=== PATIENT | male | born 2005 | race Caucasian/White ===

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

== ENCOUNTER 2023-02-28 09:02 | Emergency (ER) | payer BC, MEDICAID, SELFPAY ==
--- NOTE | ~2023-02-28 | XR_ITS ---
EXAMINATION: XR HAND, RIGHT CLINICAL INFORMATION: Pain in fifth finger after fall COMPARISON: None available. TECHNIQUE: PA, lateral, and oblique views of the right hand. FINDINGS: The bones and soft tissues are normal. No fracture. Alignment is anatomic. Joint spaces are maintained. No erosions or soft tissue calcifications. XR/XR hand RT 2V IMPRESSION: Normal right hand.
--- NOTE | ~2023-02-28 | XR_ITS ---
EXAMINATION: XR WRIST, RIGHT CLINICAL INFORMATION: Right wrist pain status post fall. COMPARISON: None available. TECHNIQUE: PA, lateral, and oblique views of the right wrist. An indicator arrow points to the distal right ulna. FINDINGS: The bones and soft tissues are normal. No fracture. Alignment is anatomic with normal joint spaces. No erosions or abnormal soft tissue calcifications. XR/XR wrist RT min 3V IMPRESSION: Unremarkable right wrist.
[2023-02-28 09:05] VITALS: BP 157/95; PULSE 87; RESP 17; TEMP 36.6; O2SAT 97; BMI 36.1
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
== END 2023-02-28 11:48 | disposition home or self-care (01) ==
PROVIDERS: Emergency Provider Emergency Medicine Emergency Medical Services
DX: S63.501A Unspecified sprain of right wrist, initial encounter (principal); W01.0XXA Fall on same level from slipping, tripping and stumbling without subsequent striking against object, initial encounter; Y93.9 Activity, unspecified; Y92.9 Unspecified place or not applicable; Y99.9 Unspecified external cause status
CPT/HCPCS: 73110; 73120; 99283; 99284

== ENCOUNTER 2023-05-24 20:30 | Emergency (ER) | payer BC, MEDICAID, SELFPAY ==
[2023-05-24 20:59] VITALS: BP 186/124; PULSE 73; RESP 18; TEMP 36.2; O2SAT 95; BMI 39.8
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
== END 2023-05-24 22:42 | disposition home or self-care (01) ==
PROVIDERS: Emergency Provider Student in an Organized Health Care Education/Training Program
DX: T23.101A Burn of first degree of right hand, unspecified site, initial encounter (principal); X58.XXXA Exposure to other specified factors, initial encounter
CPT/HCPCS: 99282

== ENCOUNTER 2023-07-30 09:48 | Emergency (ER) | payer BC, SELFPAY ==
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
--- NOTE | ~2023-07-30 | XR_ITS ---
EXAMINATION: XR CHEST CLINICAL INFORMATION: Cough COMPARISON: 12/03/2022 CT scan TECHNIQUE: 2 views of the chest were obtained. FINDINGS: No significant abnormality is noted involving the heart, lungs, mediastinum, bony thorax or soft tissues. XR/XR chest 2V IMPRESSION: Unremarkable examination.
[2023-07-30 10:09] VITALS: BP 167/95; PULSE 82; RESP 18; TEMP 37; O2SAT 97; BMI 40.2
--- NOTE | 2023-07-30 10:35 | ED_ITS ---
HPI - Asthma General Chief Complaint: Asthma Stated Complaint: Chest Pain X 1 Day Diff Breathing Time Seen by Provider: 07/30/23 10:34 Source: patient Mode of arrival: ambulatory Limitations: no limitations History of Present Illness HPI Narrative: Patient is a 18 year old assigned male at with a history of childhood asthma and vaping presenting to the emergency department today with increased SOB. Patient states that he has been having this issue over the last month, was seen at [facility], given an inhaler and felt like he was improving - then he ran out of the inhaler. Patient states that yesterday he went to an urgent care where they gave him Doxycycline to cover for walking pneumonia but he feels as though he is still having trouble. Patient denies any dizziness, lightheadedness, abdominal pain, nausea, vomiting, fever, chills, blurry vision, double vision, loss of vision, chest pain, back pain, night sweats, pain with urination, increased urinary frequency, increased urinary urgency, blood in his urine or stool, syncope or a near syncopal episode, recent trauma or falls, bowel incontinence, bladder incontinence, bowel retention, bladder retention, or any other complaints at this time. MD complaint: shortness of breath Onset (ago): month(s) (1) Severity: mild Associated symptoms: none Related Data Previous Rx's Medication Instructions Recorded albuterol sulfate 90 mcg/actuation 1 inh inhalation QID #8.5 grams 07/30/23 aerosol inhaler prednisone 20 mg tablet 20 mg PO DAILY 7 days #7 tabs 07/30/23 Allergies Allergy/AdvReac Type Severity Reaction Status Date / Time No Known Allergies Allergy Verified 02/28/23 09:04 Review of Systems Constitutional: Constitutional: Reports no additional constitutional complaints, Denies chills, Denies fever(s) and Denies night sweats Eyes: Eyes: Reports no additional eye complaints, Denies blurry vision, Denies change in vision, Denies diplopia, Denies eye discharge, Denies loss of vision and Denies eye pain ENT: Denies dizziness Cardiovascular: Cardiovascular: Reports no additional cardiovascular complaints, Denies chest pain, Denies lightheadedness, Denies Loss of Consciousness and Reports dyspnea Respiratory: Respiratory: Reports no additional respiratory complaints and Reports dyspnea Gastrointestinal: Gastrointestinal: Reports no additional gastrointestinal complaints, Denies abdominal pain, Denies melena, Denies hematochezia, Denies change in bowel habits and Denies change in stool character Genitourinary: Genitourinary: Reports no additional male genitourinary complaints, Denies hematuria, Denies oliguria, Denies difficulty urinating, Denies dysuria, Denies urinary frequency, Denies urinary hesitancy, Denies urinary incontinence and Denies urinary urgency Musculoskeletal: Musculoskeletal: Reports no additional musculoskeletal complaints, Denies numbness and Denies tingling Neurologic: Denies dizziness, Denies loss of vision, Denies numbness and Denies tingling Psychiatric: Psychiatric: Reports no additional psychiatric complaints Endocrine: Endocrine: Reports no additional endocrine complaints Hematologic/Lymphatic: Hematologic/Lymphatic: Reports no additional hemato logic/lymphatic complaints Allergic/Immunologic: Allergic/Immunologic: Reports no additional allergic/immunologic complaints [facility] Past Medical History Attestation statement: The following information was validated with the patient. Source: old records reviewed and nursing notes reviewed Onset Date is defined in the Problem List Problems that require an onset date and time if occurred within 24 hrs of arrival to the ED Aortic Dissection and Rupture; Neurologic impairment; Cardiopulmonary Arrest; Endotracheal Intubation; Insertion or Replacement of Mechanical Circulatory Assist Device Medical History HTN (hypertension) Social History Social History Patient Tobacco Use Status: Never used Tobacco Advance Directives: No Physical Exam Vital Signs: Vital Signs: Last Vital Signs Temp 98.6 F 07/30/23 10:09 Pulse 74 07/30/23 11:01 Resp 16 07/30/23 11:01 BP 167/95 H 07/30/23 10:09 Pulse Ox 97 07/30/23 10:09 O2 Del Method Room Air 07/30/23 10:09 BMI result Body Mass Index 40.2 Const: General: cooperative, no acute distress, alert and awake Nutritional Appearance: well nourished Orientation/consciousness: patient oriented x3 Limitations: no limitations HEENT: Head: Yes normal to inspection and Yes atraumatic Ears: hearing grossly normal bilaterally and external ears normal General nose exam: Normal external nose present, no nasal discharge noted and no epistaxis Face and sinus: Yes normal facial exam, No abrasion and No laceration Mouth: Normal oral and palatal mucosa present, no drooling and no muffled voice Eyes: General: appearance normal, both eyes and all related structures Periorbital: periorbital findings normal Eyelids: Yes eyelids normal Conjunctivae: conjunctivae normal Pupils: Equal, round and reactive pupils present EOM: EOMs intact bilaterally Neck: Neck: Yes normal visual inspection, Yes full ROM and Yes no lymphadeno ozzy Chest: Chest palpation & inspection: normal inspection of the chest Resp: Effort & Inspection: normal respiratory effort and able to speak in complete sentences Auscultation: clear to auscultation bilaterally GI: Inspection: Yes normal to inspection Neuro: General: patient oriented x3 and moves all extremities Cranial nerves: Yes Equal, round and reactive pupils present Cognition (Neuro): normal cognition Motor exam (neuro): 5/5 motor strength present throughout Sensory Exam: Normal double simultaneous stimulation for sensation Coordination: [id number] test normal Extrem: General: Yes normal to inspection, Yes full ROM and Yes capillary refill normal Psych: Appearance: grossly normal Mental Status: mental status grossly normal Affect: normal affect Attitude: cooperative Thought process: Normal thought process present Thought content: Normal thought content present Insight: Good insight present (Psych) Medications Administered Discontinued Medications Generic Name Dose Route Start Last Admin Trade Name Freq PRN Reason Stop Dose Admin Albuterol Sulfate 2.5 mg 07/30/23 10:54 07/30/23 10:57 Albuterol Sulfate (0.083%) 2.5 Mg/3 Ml Vial.Neb INHALE 07/30/23 10:55 Not Given ONCE ONE Albuterol/Ipratropium 3 ml 07/30/23 10:57 07/30/23 11:00 Albuterol/Iprat 2.5/0.5mg 3 Ml Ampul.Neb INHALE 07/30/23 10:58 3 ml ONCE ONE Administration Methylprednisolone Sodium Succinate 60 mg 07/30/23 10:51 07/30/23 11:15 Methylprednisolone Sod Succ 125 Mg/2 Ml Vial IM 07/30/23 10:52 60 mg ONCE ONE Administration Medical Decision Making Medical Decision Making [facility] Narrative: Patient is a 18 year old assigned male at with a history of vaping and childhood asthma presenting to the emergency department today with intermittent shortness of breath. Patient's physical exam was unremarkable. Patient's EKG was unremarkable. Patient's chest x-ray showed no acute process. I explained my physical exam findings as well as all test results to the patient. I answered all questions asked by the patient. Patient received IM solu-medrol and a breathing treatment which he stated helped his symptoms significantly. I stressed the importance of the patient taking his medication as prescribed. I stressed the importance of the patient following up with his primary care provider. I stressed the importance of the patient returning to the emergency department immediately if his symptoms were to worsen or if he were to develop any dizziness, shortness of breath, difficulty breathing, chest pain, blurry vision, loss of vision, nausea, vomiting, abdominal pain, fever, chills, back pain, or any other complaints. Patient verbalized agreement and understanding with this treatment plan and discharge. Differential Diagnosis Differential Diagnoses: The differential diagnosis associated with the presentation includes Asthma exacerbation PNA Cough URI Admission/Observation Consideration of admission/observation: Escalation of care including admission/observation considered Patient would have been admitted to the hospital had his work up had any findings where hospital admission was appropriate and his clinical presentation warranted hospital admission. Independent Interpretation I performed an independent interpretation of an: EKG and Plain X-Ray Interpretation: My interpretation is in agreement with the radiologist's impression of this imaging study. EXAMINATION: XR CHEST CLINICAL INFORMATION: Cough COMPARISON: 12/03/2022 CT scan TECHNIQUE: 2 views of the chest were obtained. FINDINGS: No significant abnormality is noted involving the heart, lungs, mediastinum, bony thorax or soft tissues. XR/XR chest 2V IMPRESSION: Unremarkable examination. Dictated By: Alexandre Aldana MD Signed By: Electronically signed by Alexandre Aldana MD 07/30/23 1127 Vent. Rate: 086 BPM Atrial Rate: 086 BPM P-R Int: 164 ms QRS Dur: 088 ms QT Int: 370 ms P-R-T Axes: 011 008 013 degrees QTc Int: 442 ms Normal sinus rhythm with sinus arrhythmia Normal ECG No previous ECGs available Electronically Signed By:STAR ROBLES Dictated By: Star Robles MD Signed By: Electronically signed by Star Robles MD 07/30/23 1118 Radiology Impression Discussion of test interpretation with radiology: I have reviewed the radiologist's reading. Discharge Plan Discharge Clinical Impression: Asthma with acute exacerbation Patient Disposition: Home, Self-Care Instructions: Asthma (DC) Additional Instructions: Follow up with your primary care provider. Return to the emergency department immediately if your symptoms worsen or if you develop any dizziness, shortness of breath, difficulty breathing, chest pain, blurry vision, loss of vision, nausea, vomiting, abdominal pain, fever, chills, back pain, or any other complaints. Prescriptions: New prednisone 20 mg tablet 20 mg PO DAILY 7 Days Qty: 7 0RF albuterol sulfate 90 mcg/actuation HFA aerosol inhaler 1 inh inhalation QID Qty: 8.5 0RF Referrals: [facility] [place] Family Medicine [Provider Group] (Call to establish and follow up with a primary care provider. If you already have a primary care provider, please follow up with them.) [facility] [place] [facility] [Provider Group] (Call to establish and follow up with a primary care provider. If you already have a primary care provider, please follow up with them.) [facility] [place] [facility] [Provider Group] (Call to establish and follow up with a primary care provider. If you already have a primary care provider, please follow up with them.) Stand Alone Forms: Work/School Release Print Language: Tuvaluan
--- OUTSIDE RECORDS SUMMARY | 2023-07-30 10:44 | XMS_ITS | Continuity of Care Document ---
Author Name Unknown Organization [facility] ter Address [address] [place] [id number] Care Team Providers Care Retail Zone Specialist Name Role Phone Not on Staff, PCP Primary Care Physician Unavail able Encounter [facility] [place] Date(s): 07/11/23 - 07/11/[address] [id number]- Encounter Diagnosis Viral syndrome(Final) - 07/11/23 Discharge Disposition: A-D/C Home Attending Physician: Holden Granados MD Admitting Physician: Holden Granados MD Referring Physician: Not on Staff, Referring MD Allergies, Adverse Reactions, Alerts No Known Allergies Medications Benadryl 25 mg oral capsule 1 capsule = 25 mg, By Mouth, 3 times a day, PRN for itching, # 30 capsule, 0 Refills, Maintenance, 03/07/19 14:19:25 EDT, Capsule Start Date: 03/07/19 Status: Ordered Vital Signs Most recent to oldest [Reference Range]: 1 Weight 143.4 kg (07/11/23 8:32 AM) Oxygen Saturation [94-100 %] 99 % (07/11/23 8:32 AM) Pulse Rate [55-90 bpm] 88 bpm (07/11/23 8:32 AM) Blood Pressure [90-138/55-84 mm Hg] 161/ 114mm Hg *H* (07/11/23 8:32 AM) Respiratory Rate [16-30 br/min] 16 br/mi n (07/11/23 8:32 AM) Temperature [96.8-100.4 DegF] 97.5 DegF (07/11/23 8:32 AM) Mode of Delivery (Oxygen) Room air (07/11/23 8:32 AM) Blood pressure sites Arm, left (07/11/23 8:32 AM) Temperature Route Oral (07/11/23 8:32 AM) Dry Weight 143.4 kg (07/11/23 8:32 AM) Weight Obtained Via Standing scale (07/11/23 8:32 AM) Dry Weight Obtained Via Standing scale (07/11/23 8:32 AM) Social History Social History Type Response Sex Male Patient Care team information Care Team Personnel Name: Not on Staff, PCP Position: [facility] Physician (General Medicine) Member Role: PCP Name: Roberta GREENE, Holden Position: [facility] ED Medicine MD Member Role: Admitting Physician Address: Address: [address] [place] [address] Name: Alex GREENE, Anuja Licea Position: [facility] Resident Member Role: ED Resident Address: Address: [address] [place] [address] Name: Laura Chandler RN Position: [facility] ED RN W/OE and Tasks Member Role: Patient Care Provider Care Team Related Persons Name: DEION CARDONA Address: home [address] [place] [id number] Name: LESLIE CARDONA Address: home [address] [place] [id number]
[2023-07-30] MEDS: Albuterol/Iprat 2.5/0.5MG 3 ML AMPUL.NEB INHALE (11:00)
[2023-07-30 11:01] VITALS: PULSE 74; RESP 16; O2SAT 98
[2023-07-30] MEDS: methylPREDNISolone Sod Succ 125 MG/2 ML VIAL 60 MG IM (11:15)
== END 2023-07-30 11:44 | disposition home or self-care (01) ==
PROVIDERS: Emergency Provider Emergency Medicine
DX: J45.901 Unspecified asthma with (acute) exacerbation (principal); R06.02 Shortness of breath; I10 Essential (primary) hypertension
CPT/HCPCS: 71046; 93005; 94640; 96372; 99284; J2930

== ENCOUNTER → 2023-07-30 10:00 | Outpatient (BNV) | payer BC, MEDICAID, SELFPAY | PROVIDERS: Emergency Provider Emergency Medicine; Visit Provider Internal Medicine | DX: R07.9 Chest pain, unspecified (principal) | CPT/HCPCS: 93010 ==

== ENCOUNTER 2023-08-22 10:44 | Emergency (ER) | payer BC, SELFPAY ==
--- NOTE | ~2023-08-22 | XR_ITS ---
EXAMINATION: XR CHEST CLINICAL INFORMATION: Hemoptysis COMPARISON: 07/30/2023 TECHNIQUE: Frontal view of the chest was obtained. FINDINGS: No significant abnormality is noted involving the heart, lungs, mediastinum, bony thorax or soft tissues. XR/XR chest 1V IMPRESSION: No interval change and no active cardiopulmonary disease
[2023-08-22 10:46] VITALS: BP 184/107; PULSE 90; RESP 18; TEMP 36; O2SAT 98; BMI 34.1
[2023-08-22 10:59] LABS: MANUAL DIFF FLAG NO
[2023-08-22 11:01] LABS: Basophils Absolute Auto 0.1 X10*3/uL (0.0-0.2); Basophils Percent Auto 1.2 % (0-2); Eosinophils Absolute Auto 0.2 X10*3/uL (0.0-0.4); Hemoglobin 17.1 g/dl (14.0-18.0); Imm Gran Abs Auto 0.02 X10*3/uL (0.00-0.03); Imm Gran Pct Auto 0.5 % (0.0-0.4); Lymphocytes Absolute Auto 1.3 X10*3/uL (1.2-4.9); Lymphocytes Percent Auto 31.4 % (20-40); Mean Corpuscular HGB Conc 34.9 g/dl (31.0-36.0); Mean Corpuscular Hemoglobin 29.6 pg (27.0-33.0); Mean Corpuscular Volume 84.8 fL (80.0-98.0); Monocytes Absolute Auto 0.5 X10*3/uL (0.1-1.2); Monocytes Percent Auto 11.7 % (2-11); Neutrophils Percent Auto 50.2 % (45-73); Platelet Count 304 X10*3/uL (160-400); Red Blood Count 5.78 X10*6/uL (4.60-5.80)
[2023-08-22 11:13] LABS: Anion Gap 16 (12-20); Blood Urea Nitrogen 11 mg/dL (9-16); Calcium 9.2 mg/dL (8.4-10.2); Carbon Dioxide 27 mmol/L (22-29); Chloride 100 mmol/L (96-108); Estimated Glomerular Filt Rate > 60; Glucose Random 97 mg/dL (60-115); Potassium 3.7 mmol/L (3.3-5.1); Sodium 139 mmol/L (135-145)
--- NOTE | 2023-08-22 14:38 | ED.GENADULT ---
HPI - General Adult General Chief complaint: GI Bleed Stated complaint: blood in vomit Time Seen by Provider: 08/22/23 14:27 Source: patient Mode of arrival: ambulatory Limitations: no limitations History of Present Illness HPI narrative: Patient comes to the emergency room complaining of a 1 time episode of vomiting blood. Patient states it has been only once. Patient states he has not been coughing any blood. Patient has chest pain shortness of breath. Patient states that he has history of GERD all his life but has never been on any medications. Patient denies any rectal bleeding. Patient got concerned about the blood and decided to come to emergency room Related Data Previous Rx's Medication Instructions Recorded albuterol sulfate 90 mcg/actuation 1 inh inhalation QID #8.5 grams 07/30/23 aerosol inhaler prednisone 20 mg tablet 20 mg PO DAILY 7 days #7 tabs 07/30/23 omeprazole 20 mg capsule,delayed 20 mg PO BID #30 caps 08/22/23 release Allergies Allergy/AdvReac Type Severity Reaction Status Date / Time No Known Allergies Allergy Verified 08/22/23 10:48 Review of Systems Review of Systems: Constitutional : No Weight loss, No Fever, No Chills, No Night Sweats, No Fatigue, No Malaise ENT/Mouth : No Hearing loss, No Ear Pain, No Nasal Congestion, No Sinus Pain, No Hoarseness, No sore throat, No Rhinorrhea, No Swallowing Difficulty Eyes: No Eye Pain, No Swelling, No Redness, No Foreign Body, No Discharge, No Vision Changes Cardiovascular : No Chest Pain, No SOB, No Dyspnea on Exertion, No Orthopnea, No Edema, No Palpitations Respiratory : No Cough, No Sputum, No Wheezing, No Smoke Exposure, No Dyspnea Gastrointestinal : 1 episode of hematemesis , No Diarrhea, No Constipation, No abdominal Pain, No Hematochezia, No Melena Genitourinary : no irregular bleeding, No Dysuria, No Urinary Frequency, No Hematuria, No Urinary Incontinence, No Urgency, No Flank Pain, No Urinary Flow Changes, No Hesitancy Musculoskeletal : No joint pain, No Myalgias, No Joint Swelling Skin : No Skin Lesions, No rash Neuro : No Weakness, No Numbness, No Paresthesias, No Loss of Consciousness, No Dizziness, No Headache Psych : No Anxiety/Panic, No Depression, No SI/HI/AH/VH, No Social Issues, Heme/Lymph: No Bruising, No Bleeding,No Lymphadenopathy Endocrine : No Polyuria, No Polydipsia, No Temperature Intolerance [facility] Past Medical History Medical History HTN (hypertension) Social History Social History Patient Tobacco Use Status: Never used Tobacco Advance Directives: No Advance Directives Information Provided: No Physical Exam ED Vital Signs: Vital Signs - 24 hr 08/22/23 10:46 08/22/23 14:53 08/22/23 15:23 Temperature 96.8 F 98.6 F 98.0 F Pulse Rate 90 73 71 Respiratory Rate 18 16 16 Blood Pressure 184/107 H 160/104 H 169/92 H Pulse Oximetry 98 97 100 Oxygen Delivery Method Room Air Room Air Room Air BMI result Body Mass Index 34.1 Const Other: Appearance: Alert. Oriented X3. No acute distress. Eyes: Pupils equal, round and reactive to light. ENT: Pharynx normal. Neck: Normal inspection. Neck supple. No lymph nodes noted. No crepitus CVS: Normal heart rate and rhythm. Pulses normal. Normal S1 and S2 Respiratory: No respiratory distress. Breath sounds normal. No Wheezing. No rales Abdomen: Soft and nontender. No rigidity. No distention. Skin: Skin warm and dry. Normal skin color. Normal skin turgor. Extremities: No lower extremity edema. No Lacerations. No Rash Neuro: Oriented X 3. No motor deficit. No sensory deficit. Moving all extremities. No slurred speech. CN 2 through 12 grossly intact Psych: calm, cooperative, normal affect Course Course Course Narrative: -patient's blood pressure was elevated in triage, 184/107, patient states that he is aware that his hypertension and is in the process of starting high blood pressure medications -patient's labs and imaging pending. Patient declined a rectal exam to look for occult blood. Patient denies drinking alcohol. Patient states that he feels completely normal at this time. Medical Decision Making Medical Decision Making [facility] Narrative: -my interpretation of chest x-ray: No abnormalities -my interpretation of labs: Hematology has a slightly decreased white blood cell count, no signs of infection, chemistry within normal limits LFTs a bit elevated, likely secondary to fatty liver -ETOH negative -patient refused digital rectal exam, guaiac test -discussed with the patient that if he continues having symptoms, he may need an endoscopy -omeprazole sent to patient's pharmacy -here in the ED, patient's physical exam is completely normal, patient has not vomited in the ED Differential Diagnosis Differential Diagnoses: The differential diagnosis associated with the presentation includes (Gastritis, peptic ulcer disease, upper GI bleed) Admission/Observation Consideration of admission/observation: Escalation of care including admission/observation considered (Given patient's symptoms, admission was considered) Lab Data MDM Lab Attestation statement: I reviewed the patient's lab results. 08/22/23 10:55 08/22/23 10:55 Labs: Lab Results 08/22/23 08/22/23 Range/Units 10:55 14:52 WBC 4.0 L (4.8-10.8) X10*3/uL RBC 5.78 (4.60-5.80) X10*6/uL Hgb 17.1 (14.0-18.0) g/dl Hct 49.0 (42.0-52.0) % MCV 84.8 (80.0-98.0) fL MCH 29.6 (27.0-33.0) pg MCHC 34.9 (31.0-36.0) g/dl RDW 12.0 (11.0-16.0) % Plt Count 304 (160-400) X10*3/uL MPV 9.0 L (9.4-12.4) fL Immature Gran % (Auto) 0.5 H (0.0-0.4) % Neut % (Auto) 50.2 (45-73) % Lymph % (Auto) 31.4 (20-40) % [place] % (Auto) 11.7 H (2-11) % Eos % (Auto) 5.0 H (0-4) % Baso % (Auto) 1.2 (0-2) % Lymph # (Auto) 1.3 (1.2-4.9) X10*3/uL [place] # (Auto) 0.5 (0.1-1.2) X10*3/uL Eos # (Auto) 0.2 (0.0-0.4) X10*3/uL Baso # (Auto) 0.1 (0.0-0.2) X10*3/uL Abs Immat Gran (auto) 0.02 (0.00-0.03) X10*3/uL Absolute Neuts (auto) 2.0 (2.0-8.3) x10*3/uL Absolute Nucleated RBC 0.000 (0.0-0.012) X10*3/uL Nucleated RBC % (auto) 0.0 (0.0-0.2) /100WBC PT 12.0 (11.1-13.3) SEC INR 1.0 (0.9-1.1) Sodium 139 (135-145) mmol/L Potassium 3.7 (3.3-5.1) mmol/L Chloride 100 (96-108) mmol/L Carbon Dioxide 27 (22-29) mmol/L Anion Gap 16 (12-20) BUN 11 (9-16) mg/dL Creatinine 0.79 (0.5-1.4) mg/dL Estim Creat Clear Calc 217.0 Estimated GFR > 60 Random Glucose 97 (60-115) mg/dL Calcium 9.2 (8.4-10.2) mg/dL Total Bilirubin 0.9 (0.0-1.0) mg/dL Direct Bilirubin 0.3 (0.0-0.5) mg/dL AST 50 H (5-37) U/L ALT 119 H (0-40) U/L Alkaline Phosphatase 79 (39-117) U/L Total Protein 8.0 (6.5-8.0) g/dL Albumin 4.7 (3.5-5.0) g/dL Lipase 22 (8-78) U/L Ethyl Alcohol < 10 mg/dL Independent Interpretation I performed an independent interpretation of an: Plain X-Ray Radiology Impression Discussion of test interpretation with radiology: I have reviewed the radiologist's reading. Radiologist Impression: FINDINGS: No significant abnormality is noted involving the heart, lungs, mediastinum, bony thorax or soft tissues. XR/XR chest 1V IMPRESSION: No interval change and no active cardiopulmonary disease Critical Care Time Critical Care Time Critical Care Time: Yes Total Critical Care Time: 30 Attestation: I have personally provided critical care time. Time includes review of lab data, radiology results, discussion with consultants, and monitoring for potential decompensation. Intervention performed as documented. Discharge Plan Discharge Clinical Impression: Vomiting Patient Disposition: Home, Self-Care Instructions: Acute Nausea and Vomiting (ED) Additional Instructions: You medications were sent to your pharmacy at [address] [place] [address]. Please follow-up with your primary care physician tomorrow. If you have any worsening or new symptoms, please return to the emergency room or call 911. If you continue having the symptoms, you need to be seen by a optical mechanic. Prescriptions: New omeprazole 20 mg capsule,delayed release(DR/EC) 20 mg PO BID Qty: 30 0RF No Action prednisone 20 mg tablet 20 mg PO DAILY 7 Days Qty: 7 0RF albuterol sulfate 90 mcg/actuation HFA aerosol inhaler 1 inh inhalation QID Qty: 8.5 0RF
[2023-08-22 14:53] VITALS: BP 160/104; PULSE 73; RESP 16; TEMP 37; O2SAT 97
[2023-08-22 15:08] LABS: Alanine Aminotransferase 119 U/L (0-40); Albumin Level 4.7 g/dL (3.5-5.0); Alkaline Phosphatase 79 U/L (39-117); Aspartate Amino Transferase 50 U/L (5-37); Bilirubin Direct 0.3 mg/dL (0.0-0.5); Bilirubin Total 0.9 mg/dL (0.0-1.0); Lipase 22 U/L (8-78)
[2023-08-22 15:23] VITALS: BP 169/92; PULSE 71; RESP 16; TEMP 36.7; O2SAT 100
[2023-08-22 15:23] LABS: Ethanol < 10 mg/dL
== END 2023-08-22 16:55 | disposition home or self-care (01) ==
PROVIDERS: Emergency Provider Emergency Medicine
DX: R11.10 Vomiting, unspecified (principal); R06.02 Shortness of breath; K21.9 Gastro-esophageal reflux disease without esophagitis; I10 Essential (primary) hypertension; Z79.899 Other long term (current) drug therapy
CPT/HCPCS: 36415; 71045; 80048; 80076; 80307; 83690; 85025; 85610; 99283

== ENCOUNTER 2023-09-12 22:37 | Emergency (ER) | payer BC, SELFPAY ==
[2023-09-12 22:41] VITALS: BP 158/106; PULSE 79; RESP 18; TEMP 36.3; O2SAT 95; BMI 36.5
--- NOTE | 2023-09-12 23:57 | ED.GENADULT ---
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 Today he tried to look around his welding mask a few times. This evening he developed pain in both eyes that became profoundly severe and he became extremely sensitive to light. He feels that his vision is foggy than usual. He has had flash masters like this on previous occasions. No other injury. He says that he has a history of high blood pressure but does not take medications. Related Data Previous Rx's Medication Instructions Recorded albuterol sulfate 90 mcg/actuation 1 inh inhalation QID #8.5 grams 07/30/23 aerosol inhaler prednisone 20 mg tablet 20 mg PO DAILY 7 days #7 tabs 07/30/23 omeprazole 20 mg capsule,delayed 20 mg PO BID #30 caps 08/22/23 release erythromycin 5 mg/gram (0.5 %) eye 0.5 inch ophthalmic (eye) QID #3.5 09/13/23 ointment grams ibuprofen 800 mg tablet 800 mg PO Q6H PRN pain #14 tabs 09/13/23 oxycodone 5 mg tablet 5 mg PO Q6H PRN pain #10 tabs 09/13/23 Allergies Allergy/AdvReac Type Severity Reaction Status Date / Time No Known Allergies Allergy Verified 09/12/23 22:41 Review of Systems Review of Systems: Yes all other systems are reviewed and are negative [facility] Past Medical History Medical History HTN (hypertension) Social History Social History Patient Tobacco Use Status: Never used Tobacco Smoked in Last 30 Days: No Use of substances other than those prescribed or required for medical reasons: No Advance Directives: No Advance Directives Information Provided: Yes Physical Exam ED Vital Signs: Vital Signs - 24 hr 09/12/23 22:41 Temperature 97.3 F Pulse Rate 79 Respiratory Rate 18 Blood Pressure 158/106 H Pulse Oximetry 95 Oxygen Delivery Method Room Air BMI result Body Mass Index 36.5 Const Other: The patient is awake and alert. He was sitting up and holding a blanket over his eyes. He looked uncomfortable. HENMT Other: Face is symmetrical. No facial injury. Mucous membranes are moist. Eyes Other: The patient was extremely photophobic. After instilling tetracaine drops in both eyes I was able to examine him better. His pupils are equal and round and reactive. There is some mild bilateral conjunctival injection. Visual acuity is 20/30 in the right eye and 20/70 in the left eye. Fluorescein staining reveals some mild diffuse punctate uptake of dye. Neck Other: Moving his neck easily Resp Effort & Inspection: normal respiratory effort Neuro Other: The patient is awake and alert with a normal mental status. Gait is normal. Medications Administered Discontinued Medications Generic Name Dose Route Start Last Admin Trade Name Freq PRN Reason Stop Dose Admin Cyclopentolate HCl 2 drop 09/12/23 23:52 09/13/23 00:32 Cyclopentolate 1 % Ophth Ceci 2 Ml Drpbtl EYE-BOTH 09/12/23 23:53 Not Given ONCE ONE Erythromycin 1 cm 09/13/23 00:03 09/13/23 00:29 Erythromycin Base 0.5% Oph Oin 1 Gm Tube EYE-BOTH 09/13/23 00:04 1 cm ONCE ONE Administration Fluorescein Sodium 2 strip 09/12/23 23:39 09/13/23 00:29 Fluorescein Sodium Strip EYE-BOTH 09/12/23 23:40 2 strip ONCE ONE Administration Ketorolac Tromethamine 60 mg 09/12/23 23:51 09/13/23 00:29 Ketorolac Tromethamine 60 Mg/2 Ml Vial IM 09/12/23 23:52 60 mg ONCE ONE Administration Oxycodone HCl 5 mg 09/13/23 00:49 09/13/23 00:57 Oxycodone Hcl Immed Release 5 Mg Tablet PO 09/13/23 00:50 5 mg ONCE ONE Administration Tetracaine HCl 3 drop 09/12/23 23:31 09/13/23 00:29 Tetracaine Hcl 0.5% Oph Ceci 5 Ml Drops EYE-BOTH 09/12/23 23:32 3 drop ONCE ONE Administration Tetracaine HCl 3 drop 09/13/23 00:49 09/13/23 00:57 Tetracaine Hcl 0.5% Oph Ceci 5 Ml Drops EYE-BOTH 09/13/23 00:50 Not Given ONCE ONE Medical Decision Making Medical Decision Making MDM Narrative: 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 He now presents with what seems like typical flash masters of both corneas. He has some bilateral conjunctival injection. There is some diffuse punctate uptake of fluorescein dye with fluorescein staining. He had good relief of pain with tetracaine. His visual acuity was 20/30 in the right eye and 20/70 in the left eye. He was administered erythromycin ointment. He was given an IM injection of ketorolac and a dose of oxycodone. He felt well enough to the point where he was able to fall asleep in the emergency department although he felt that his left eye was more uncomfortable than his right. I re-examined him and I do not see any obvious asymmetry to his exam. He will be discharged with additional erythromycin ointment and also prescriptions for ibuprofen and acetaminophen. Follow up with Ophthalmology early next week. Get checked again if worse. Discharge Plan Discharge Clinical Impression: Ultraviolet keratitis of both eyes Patient Disposition: Home, Self-Care Instructions: Corneal Flash Masters (ED) Additional Instructions: You seemed to have the typical corneal injury caused by ultraviolet light. This is called ultraviolet keratitis, also known as corneal flash masters. Please apply the erythromycin ointment to each eye every 6 hours. Pull down the lower eyelid and put half an inch of the ointment in the lower eyelid. You may also take 1000 mg of acetaminophen (2 extra-strength Tylenol) every 8 hours. For pain you may take ibuprofen every 6 hours as needed. A prescription for oxycodone has also been sent which you may use as well. You have been provided with the name and number of the budget consultant on-call. Please call the office on Friday for a recheck. If you are worse over the weekend you may try calling the budget consultant to see if they can see you. If you can not be seen by the budget consultant in your significantly worse please return to the emergency room. Prescriptions: New ibuprofen 800 mg tablet 800 mg PO Q6H PRN (Reason: pain) Qty: 14 0RF erythromycin 5 mg/gram (0.5 %) ointment 0.5 inch ophthalmic (eye) QID Qty: 3.5 0RF oxycodone 5 mg tablet 5 mg PO Q6H PRN (Reason: pain) Qty: 10 0RF Rx Instructions: Partial Fill upon patient request. No Action prednisone 20 mg tablet 20 mg PO DAILY 7 Days Qty: 7 0RF albuterol sulfate 90 mcg/actuation HFA aerosol inhaler 1 inh inhalation QID Qty: 8.5 0RF omeprazole 20 mg capsule,delayed release(DR/EC) 20 mg PO BID Qty: 30 0RF Referrals: Anirudh Mendoza [Physician] - (ultraviolet keratitis)
[2023-09-13] MEDS: Ketorolac Tromethamine 60 MG/2 ML VIAL IM (00:29)
[2023-09-13] MEDS: Fluorescein Sodium STRIP 2 STRIP EYE-BOTH (00:29)
[2023-09-13] MEDS: Erythromycin Base 0.5% Oph Oin 1 GM TUBE 1 CM EYE-BOTH (00:29)
[2023-09-13] MEDS: Tetracaine HCl 0.5% Oph Sol 5 ML DROPS 3 DROP EYE-BOTH (00:29)
--- NOTE | 2023-09-13 00:32 | PC.NURSE ---
pt medicated per mar for 10/10 left eye pain.
[2023-09-13] MEDS: oxyCODONE HCl Immed Release 5 MG TABLET PO (00:57)
[2023-09-13 01:33] VITALS: BP 144/93; PULSE 68; RESP 16; O2SAT 94
== END 2023-09-13 01:40 | disposition home or self-care (01) ==
PROVIDERS: Emergency Provider Emergency Medicine
DX: H16.133 Photokeratitis, bilateral (principal); W89.0XXA Exposure to welding light (arc), initial encounter; Y93.89 Activity, other specified; Y92.9 Unspecified place or not applicable; Y99.9 Unspecified external cause status; H57.13 Ocular pain, bilateral; I10 Essential (primary) hypertension
CPT/HCPCS: 96372; 99284; J1885

== ENCOUNTER → 2023-09-30 08:35 | Outpatient (BNVA) | payer OTHER, SELFPAY | PROVIDERS: Visit Provider Physician Assistant Medical | DX: S80.02XA Contusion of left knee, initial encounter (principal); W18.30XA Fall on same level, unspecified, initial encounter | CPT/HCPCS: 29515; 73560; 73564; 99203 ==

== ENCOUNTER 2023-10-09 16:07 | Outpatient (REF) | payer OTHER, SELFPAY ==
--- NOTE | ~2023-10-09 | XR_ITS ---
EXAMINATION: XR KNEE, LEFT CLINICAL INFORMATION: Pain in left knee COMPARISON: Left knee 09/30/2023 TECHNIQUE: Four views of the left knee. FINDINGS: No fracture or joint effusion. Alignment is anatomic. Joint spaces are well maintained. No appreciable degenerative changes. No abnormal soft tissue calcification. XR/XR knee LT 3V IMPRESSION: No bony abnormality.
== END 2023-10-09 16:08 | disposition home or self-care (01) ==
LOC: HO.HOSX 16:07
PROVIDERS: Visit Provider Physician Assistant
DX: M25.562 Pain in left knee (principal)
CPT/HCPCS: 73562

== ENCOUNTER 2023-10-10 12:38 | Outpatient (AMB) | payer OTHER, SELFPAY ==
--- NOTE | 2023-10-10 12:39 | MHC.OFFVIS ---
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 Seen at work connection. States he works at [employer] and tripped on his extension cord and fell onto the concrete floor. He state he is having pain, swelling and numbness on the knee cap. He can bend his knee a little but with pain. 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 He works at [employer] and tripped on an extension cord and fell onto the concrete floor landing directly on the left knee. He was seen at the work connection and x-rays were obtained. They were concerned about a fracture over the patella. He was placed in a knee immobilizer and referred to our office for ortho eval. He is currently out of work.. He state he is having pain, swelling and numbness on the knee cap. He can bend his knee a little but with pain. 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 He does have a moderate-sized prepatellar bursitis with significant tenderness over the patella. ROM full however when his knee is in full extension it is difficult to palpate the inferior pole of the patella and he has significant tenderness with this. Negative steinmans. No ligamentous laxity. NVI. Results Reviewed Results Reviewed: X-rays of the left knee obtained in the office today show a subtle lucency in the patella no other acute abnormalities Assessment & Plan Assessment & Plan (1) Internal derangement of left knee: Code(s): M23.92 - Unspecified internal derangement of left knee Plan: A stat MRI of the left knee has been ordered to further evaluate the surrounding structures of the knee. He was placed in a knee brace today to allow full range of motion and stability. He will remain out of work until I see him back for MRI review. Orders: Orders MR knee LT wo con Today M23.92 - Unspecified internal derangement of left knee XR knee LT 3V Today M25.562 - Pain in left knee Coding Level of Care Code New Pt Level 3 (71467) Diagnoses Internal derangement of left knee M23.92
[2023-10-10 12:40] VITALS: BMI 36.5
== END 2023-10-10 13:40 | disposition home or self-care (01) ==
PROVIDERS: Visit Provider Physician Assistant
DX: M23.92 Unspecified internal derangement of left knee (principal); W01.0XXA Fall on same level from slipping, tripping and stumbling without subsequent striking against object, initial encounter; Z04.2 Encounter for examination and observation following work accident
CPT/HCPCS: 99203

== ENCOUNTER → 2023-10-10 12:38 | Outpatient (BNVA) | payer OTHER, SELFPAY | PROVIDERS: Visit Provider Physician Assistant | DX: M23.92 Unspecified internal derangement of left knee (principal) | CPT/HCPCS: 99202 ==

== ENCOUNTER 2023-10-13 14:16 | Outpatient (REF) | payer OTHER, SELFPAY ==
--- NOTE | ~2023-10-13 | XR_ITS ---
EXAMINATION: XR ORBITS PRE-MRI SCREENING CLINICAL INFORMATION: Evaluate for foreign body prior to MRI COMPARISON: None TECHNIQUE: Orbit series, 3 views FINDINGS: No radiopaque foreign body in the calvarial or facial regions, including orbits. Paranasal sinuses are well aerated and without air-fluid levels. There are no suspicious bone lesions. XR/XR pre mri screening IMPRESSION: Normal. No evidence of a metallic foreign body in either orbit.
--- NOTE | ~2023-10-13 | MR_ITS ---
EXAMINATION: MR KNEE WITHOUT CONTRAST, LEFT CLINICAL INFORMATION: Internal derangement. Patient reports fall, 08/31/2023, pain, swelling. Patient reports no prior knee surgery. COMPARISON: None available. TECHNIQUE: MRI of the knee without contrast was performed using routine sequences on a high-field scanner. FINDINGS: MENISCI: Medial Meniscus: Body is slightly small in caliber, with inner margin blunting. This could represent a subtle inner margin tear, versus physiological variation. Patient reports no prior surgery. Lateral Meniscus: Fraying of the posterior root/central posterior horn. No tear is otherwise seen.. LIGAMENTS: Cruciate: Intact Collateral: Intact EXTENSOR MECHANISM: Quadriceps and patellar tendon are intact. There is a bright T2/low T1 signal collection in the anterior soft tissues/subcutaneous tissues of the knee, including overlying the patella. This measures 7.4 x 2.7 x 5.6 cm (transverse, AP, length). The proximal aspect of this focus extensive beyond the [id number]. Differential consideration bursitis, hematoma, seroma. There is a prominent anterior subcutaneous edema otherwise present ARTICULAR CARTILAGE/BONE: Patellofemoral Compartment: No chondral loss Medial Compartment: No chondral loss Lateral Compartment: No chondral loss small joint fluid. No significant Cosby's cyst. JOINT FLUID AND BURSAE: Small joint fluid. No significant Cosby's cyst. Septated cystic focus posterior to the PCL measuring 2.3 x 2 x 2 cm, probable ganglion cyst. MR/MR knee LT wo con IMPRESSION: 1. Findings in the body of the medial meniscus, could represent physiological variation versus inner margin tear. 2. Fraying of the posterior root/central posterior horn of the lateral meniscus. 3. T2 bright collection in the anterior soft tissues of the knee measuring up to 7.4 cm. Differential consideration include hematoma, seroma, bursitis. Infectious/inflammatory process in the appropriate clinical circumstance cannot be excluded 4. Anterior subcutaneous edema. 5. Septated cystic focus posterior to the PCL measuring up to 2.3 cm, probable ganglion cyst.
== END 2023-10-13 14:17 | disposition home or self-care (01) ==
LOC: HO.MRI 14:16
PROVIDERS: Visit Provider Physician Assistant
DX: M23.92 Unspecified internal derangement of left knee (principal)
CPT/HCPCS: 73721

== ENCOUNTER 2023-10-20 08:23 | Outpatient (AMB) | payer OTHER, SELFPAY ==
[2023-10-20 08:24] VITALS: BMI 36.5
--- NOTE | 2023-10-20 08:24 | MHC.OFFVIS ---
Intake Vital Signs 10/20/23 08:24 Height 6 ft 4 in Weight 300 lb BMI 36.5 Intake Visit Reasons: OV-MRI Knee LT-Review Intake Note: Jerzy a 18 year old male presents today for a work injury MRI review of his left knee, DOI 09/29/23. Patient reports?swollen and pain, when walking and stand up for a while. Speech Writer Required: No Information Interpreted: non-clinical & clinical Accompanied by: Self / Same As Patient Allergies No Known Allergies Allergy (Verified 10/20/23 08:27) HPI OV-MRI Knee LT-Review HPI Details 18-year-old male who returns to the office today for an MRI review of left knee. He continues to have pain, and tightness in his knee with walking and prolonged standing. He also reports his knee is tender to touch. He denies any catching or locking in his knee. He has no other concerns today. He is currently out of work. 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 Trace prepatellar bursitis with significant tenderness over the patella. ROM full without extension lag. Negative steinmans. No ligamentous laxity. NVI. Results Reviewed Results Reviewed: MR knee LT wo con IMPRESSION: 1. Findings in the body of the medial meniscus, could represent physiological variation versus inner margin tear. 2. Fraying of the posterior root/central posterior horn of the lateral meniscus. 3. T2 bright collection in the anterior soft tissues of the knee measuring up to 7.4 cm. Differential consideration include hematoma, seroma, bursitis. Infectious/inflammatory process in the appropriate clinical circumstance cannot be excluded 4. Anterior subcutaneous edema. 5. Septated cystic focus posterior to the PCL measuring up to 2.3 cm, probable ganglion cyst. Assessment & Plan Assessment & Plan (1) Prepatellar bursitis, left knee: Code(s): M70.42 - Prepatellar bursitis, left knee Plan A course of physical therapy was ordered in the office today. He will remain out of work till his next follow-up appointment in 3-4 weeks, sooner if needed. Orders: Orders PT Evaluation and Treatment Today M70.42 - Prepatellar bursitis, left knee Patient Instructions: Scribed for Montez Napier PA-C, by Rashad Edmondson biomedical engineering supervisor, on 10/20/2023 at 8:30 AM EST. I, Montez Napier PA-C, have personally reviewed and agree with the information entered by the scribe. Coding Level of Care Code Est Pt Level 3 (92044) Diagnoses Prepatellar bursitis, left knee M70.42
== END 2023-10-20 09:01 | disposition home or self-care (01) ==
PROVIDERS: Visit Provider Physician Assistant
DX: M70.42 Prepatellar bursitis, left knee (principal)
CPT/HCPCS: 99213

== ENCOUNTER → 2023-10-20 08:23 | Outpatient (BNVA) | payer OTHER, SELFPAY | PROVIDERS: Visit Provider Physician Assistant | DX: M70.42 Prepatellar bursitis, left knee (principal) | CPT/HCPCS: 99212 ==

== ENCOUNTER 2023-11-10 09:09 | Outpatient (AMB) | payer OTHER, SELFPAY ==
--- NOTE | 2023-11-10 09:16 | MHC.OFFVIS ---
Vital Signs 11/10/23 09:17 Height 6 ft 4 in Weight 280 lb BMI 34.1 Intake Visit Reasons: ov-left knee bursitis w/c Intake Note: Jerzy a 18 year old male who presents today for a WC follow up of left knee, DOI 09/29/23. Patient reports swelling and soreness. Patient communicates improvement on ROM. Patient would like work note extended as it ends today. Per patient, he has only done one session of PT. Applications Developer Required: No Accompanied by: Self / Same As Patient Allergies No Known Allergies Allergy (Verified 11/10/23 09:19) HPI HPI ov-left knee bursitis w/c: Details: 18-year-old male who returns to the office today for a follow-up of left knee injury, 09/29/23. He states he is doing well with pain and ROM however he continues to have swelling and soreness in his knee. He has attended only 1 session of physical therapy. He would like to get his work note extended as it ends today. He has no other concerns. 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 Trace prepatellar bursitis with significant tenderness over the patella. ROM full without extension lag. Negative steinmans. No ligamentous laxity. NVI. Assessment & Plan Assessment & Plan (1) Prepatellar bursitis, left knee: Code(s): M70.42 - Prepatellar bursitis, left knee Category: Medical Plan He is going to continue working with physical therapy as he just had his initial evaluation on November 06 and has sessions booked till December 04. This will give him time to regain the motion and strength so that he can return to work on December 17 without restrictions. If symptoms persist or worsens, patient will contact the office, otherwise follow-up as needed. Patient Instructions: Scribed for Montez Napier PA-C, by Rashad Edmondson medical accounting clerk, on 11/10/2023 at 9:15 AM DOM. Montez Finn PA-C, have personally reviewed and agree with the information entered by the scribe. Coding Level of Care Code Est Pt Level 3 (54090) Diagnoses Prepatellar bursitis, left knee M70.42
[2023-11-10 09:17] VITALS: BMI 34.1
== END 2023-11-10 09:32 | disposition home or self-care (01) ==
PROVIDERS: Visit Provider Physician Assistant
DX: M70.42 Prepatellar bursitis, left knee (principal)
CPT/HCPCS: 99213

== ENCOUNTER → 2023-11-10 09:09 | Outpatient (BNVA) | payer OTHER, SELFPAY | PROVIDERS: Visit Provider Physician Assistant | DX: M70.42 Prepatellar bursitis, left knee (principal) | CPT/HCPCS: 99212 ==

== ENCOUNTER 2023-12-05 08:00 | Outpatient (RCR) | payer OTHER, BC, SELFPAY ==
--- NOTE | 2023-11-05 14:40 | MHC.PT.EP ---
[facility] [place] [facility] [place] [facility] [place] Office [address] Diamond Bullock [address] [phone] F: [phone] F: [phone] F: [phone] F: [phone] Physical Therapy Plan of Care Date of Evaluation: 11/05/23 Date of Surgery: Diagnosis: This is a 18 yo male presenting to skilled PT with a script for prepatellar bursitis, L knee. Assessment: This is a 18 yo male presenting to skilled PT with a script for prepatellar bursitis, L knee. This patient presents for an evaluation for his for his work injury that happened on 09/29/23. States he works at [employer], he tripped on his extension cord and fell onto a channel. The fall caused pain, swelling and numbness at the patella. He was first seen by work connection where he was put in a knee immobilizer and referred to ortho with concerns of patella fx. Ortho ordered MRI and placed him a brace to allow for full ROM. He has seen ortho 2 times, the last being on 10/19 when PT was ordered. He follows up with them on 11/09. Today he presents reporting that his swelling improved some but the pain is still about the same. Pain is located at the patella tendon, medial and lateral joint line and posterior knee. Pain is sharp in nature. Pain increases with walking, lifting heavier and standing. He is still wearing a hinged short brace and usually wearing this all day, did not wear to his appointment today. Assessment reveals pain that ranges from up to a 6/10 at the worst. Patient demos decreased knee ROM, strength of L LE, deviations noted from pain, TTP at patella, medial and lateral joint lines and quad tendon and impaired posture with forward head and rounded shoulders. He demos a gait pattern with increased valgus and hyperextension as well as ER at hips. His injury causes knee buckling and impaired balance. Based on functional limitations, impaired QOL and pain tolerance patient is a good candidate for skilled PT 2x/wk for 4wks. Frequency and Duration: The patient will be seen 2x/wk for 4wks Short Term Goals: (in 2 weeks) Patient will improve knee AROM by at least 10 degs without assist Patient will demo good undestanding and performance of quad set in multiple different planes without cues from PT Patient will be I in HEP Longterm Goals: (in 4 weeks) Patient will report 75% improvement in balance and strength of LLE as evidenced by reports no of falls or buckling in LE Patient will improve LEFs by 10 points Patient will demo WFL AROM of knee and ankle Patient will demo proper squat and lift techniques without increase in pain Treatment Plan: Modalities to reduce pain, spasms and effusion. Manual therapy to restore motion and function. Therapeutic exercise to improve strength and flexibility. Neuromuscular re-education for posture and balance. Therapeutic activities to return to functional activities of daily living. Electronically signed by: Jaye Arora PT Please sign and return to therapist. Thank you for your referral.
--- NOTE | 2023-12-05 08:26 | MHC.PT.DC ---
[facility] [place] Office [place] Office [place] Office [address] Diamond Bullock [address] [phone] F: [phone] F: [phone] F: [phone] F: [phone] Physical Therapy Discharge Report Diagnosis: This is a 18 yo male presenting to skilled PT with a script for prepatellar bursitis, L knee. Date of Surgery: Date of Evaluation: 11/05/23 Date of Discharge: 12/05/23 Treatments to Date: 5 Cancellations to Date: 0 No Shows to Date: 0 Discharge Status: Achieved Goals Improved Function Independent with HEP Patient Elected to Stop Discharge Summary: 12/04: Pt has some to 5 sessions of PT, he has improved his ROM, strength and pain. He has no more symptoms, he is still I in his HEP and is ready to return to work. Patient has returned to sport, returned to normal daily routines, has met his goals and does not need skilled PT any longer. Electronically signed by: Jaye Arora, PT Please sign and return to therapist. Thank you for your referral.
== END 2023-12-05 08:26 | disposition home or self-care (01) ==
LOC: HO.PTCHIC 08:00
PROVIDERS: Visit Provider Physician Assistant
DX: M70.42 Prepatellar bursitis, left knee (principal)
CPT/HCPCS: 97110; 97140; 97161

== ENCOUNTER 2024-03-12 21:42 | Emergency (ER) | payer BC, SELFPAY ==
[2024-03-12 21:45] VITALS: BP 165/110; PULSE 115; RESP 18; TEMP 36.6; O2SAT 95; BMI 40.8
[2024-03-12 22:15] LABS: COVID-19 Test Negative (Negative); IDNOW Serial# 152EDE1D
[2024-03-12 22:18] LABS: IDNOW Serial# 08D9AD1C; Influenza A Negative (Negative)
[2024-03-12 22:19] LABS: Influenza B2 Negative (Negative)
--- NOTE | 2024-03-12 22:53 | ED.EAR ---
HPI - Ear Problem General Chief complaint: Ear Problems Stated complaint: ear infection Time Seen by Provider: 03/12/24 22:48 Source: patient Mode of arrival: ambulatory Limitations: no limitations History of Present Illness ED Provider: Dr. Jo Cardenas HPI Narrative: Patient comes to the emergency room complaining of left-sided ear pain. Patient states it started in the last couple of days. However, patient states that for about a week he has has had nasal congestion, pressure on his head. Patient denies any hearing loss, denies sore throat, no difficulty breathing or chest pain. Denies fever or chills Related Data Previous Rx's ?Medication ?Instructions ?Recorded albuterol sulfate 90 mcg/actuation 1 inh inhalation QID #8.5 grams 07/30/23 aerosol inhaler omeprazole 20 mg capsule,delayed 20 mg PO BID #30 caps 08/22/23 release ibuprofen 800 mg tablet 800 mg PO Q6H PRN pain #14 tabs 09/13/23 amoxicillin 500 mg-potassium 1 tab PO BID #20 tabs 03/12/24 clavulanate 125 mg tablet (Augmentin) ibuprofen 400 mg tablet 400 mg PO Q8H PRN fever or pain 03/12/24 #20 tabs Allergies Allergy/AdvReac Type Severity Reaction Status Date / Time No Known Allergies Allergy Verified 03/12/24 21:47 Review of Systems Review of Systems: Constitutional : No Weight loss, No Fever, No Chills, No Night Sweats, No Fatigue, No Malaise ENT/Mouth : No Hearing loss, complaining of left ear pain, no drainage, sinus pressure, no sore throat Eyes: No Eye Pain, No Swelling, No Redness, No Foreign Body, No Discharge, No Vision Changes Cardiovascular : No Chest Pain, No SOB, No Dyspnea on Exertion, No Orthopnea, No Edema, No Palpitations Respiratory : No Cough, No Sputum, No Wheezing, No Smoke Exposure, No Dyspnea Gastrointestinal : No Nausea, No Vomiting, No Diarrhea, No Constipation, No abdominal Pain, No Hematochezia, No Melena Genitourinary : no irregular bleeding, No Dysuria, No Urinary Frequency, No Hematuria, No Urinary Incontinence, No Urgency, No Flank Pain, No Urinary Flow Changes, No Hesitancy Musculoskeletal : No joint pain, No Myalgias, No Joint Swelling Skin : No Skin Lesions, No rash Neuro : No Weakness, No Numbness, No Paresthesias, No Loss of Consciousness, No Dizziness, No Headache Psych : No Anxiety/Panic, No Depression, No SI/HI/AH/VH, No Social Issues, Heme/Lymph: No Bruising, No Bleeding,No Lymphadenopathy Endocrine : No Polyuria, No Polydipsia, No Temperature Intolerance PMF Past Medical History Medical History HTN (hypertension) Social History Social History Household Members: Family Housing: House Patient Tobacco Use Status: Never used Tobacco Advance Directives: No Advance Directives Information Provided: No Do you have a plan to hurt others: No Plan 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 Oriented X3. No acute distress. Eyes: Pupils equal, round and reactive to light. ENT: Pharynx normal. No obvious abscess, right ear and ear canal within normal limits, left ear canal erythematous Neck: Normal inspection. Neck supple. No lymph nodes noted. No crepitus CVS: Normal heart rate and rhythm. Pulses normal. Normal S1 and S2 Respiratory: No respiratory distress. Breath sounds normal. No Wheezing. No rales Abdomen: Soft and nontender. No rigidity. No distention. Skin: Skin warm and dry. Normal skin color. Normal skin turgor. Extremities: No lower extremity edema. No Lacerations. No Rash Neuro: Oriented X 3. No motor deficit. No sensory deficit. Moving all extremities. No slurred speech. CN 2 through 12 grossly intact Psych: calm, cooperative, normal affect Medical Decision Making Medical Decision Making MDM Narrative: I discussed the physical exam with the patient, patient does have otitis media on the left ear. -patient will be going to a 24 hour pharmacy to machine pecan picker his prescriptions. -my interpretation of labs: Negative for COVID and influenza Differential Diagnosis Differential Diagnoses: The differential diagnosis associated with the presentation includes (Otalgia, otitis media, sinusitis, viral URI) Lab Data MDM Lab Attestation statement: I reviewed the patient's lab results. Labs: Lab Results 03/12/24 Range/Units 21:56 COVID-19 (JEANNIE) Negative (Negative) COVID-19 Clin Com See Note Influenza Type A (KATHARINE) Negative (Negative) Influenza Type B (KATHARINE) Negative (Negative) Influenza A & B Note See Note Discharge Plan Discharge Clinical Impression: Otitis media Patient Disposition: Home, Self-Care Instructions: Ear Infection (ED) Additional Instructions: Please follow-up with your primary care physician tomorrow. If you have any worsening or new symptoms, please return to the emergency room or call 911 Prescriptions: New amoxicillin-pot clavulanate [Augmentin] 500-125 mg tablet 1 tab PO BID Qty: 20 0RF ibuprofen 400 mg tablet 400 mg PO Q8H PRN (Reason: fever or pain) Qty: 20 0RF No Action albuterol sulfate 90 mcg/actuation HFA aerosol inhaler 1 inh inhalation QID Qty: 8.5 0RF omeprazole 20 mg capsule,delayed release(DR/EC) 20 mg PO BID Qty: 30 0RF ibuprofen 800 mg tablet 800 mg PO Q6H PRN (Reason: pain) Qty: 14 0RF Print Language: Yi
[2024-03-12 23:03] VITALS: BP 165/110; PULSE 115; RESP 18; TEMP 36.6; O2SAT 95
== END 2024-03-12 23:03 | disposition home or self-care (01) ==
PROVIDERS: Emergency Provider Emergency Medicine
DX: H66.92 Otitis media, unspecified, left ear (principal); I10 Essential (primary) hypertension; Z03.818 Encounter for observation for suspected exposure to other biological agents ruled out
CPT/HCPCS: 87502; 87635; 99283; 99284

== ENCOUNTER 2024-05-09 12:18 | Emergency (ER) | payer BC, SELFPAY ==
[2024-05-09 12:23] VITALS: BP 190/140; PULSE 95; RESP 18; TEMP 36.4; O2SAT 96; BMI 40.6
--- NOTE | 2024-05-09 12:23 | ED_ITS ---
HPI - Ear Problem General Chief complaint: Ear Problems Stated complaint: l ear pain Time Seen by Provider: 05/09/24 12:32 Source: patient Mode of arrival: ambulatory Limitations: no limitations History of Present Illness ED Provider: Vesna Sam APRN HPI Narrative: 19 yo male with past medical history of HTN here with complaints of left ear pain/pressure. Has had cough/congestion/sinus pain and pressure x 1 week. Family all has URI symptoms at home. Has tested 3 times for COVID and negative per patient. No hearing loss, tinnitus, ear drainage. Did not take his blood pressure medications today. No headache, vision changes, vomiting. Related Data Previous Rx's ?Medication ?Instructions ?Recorded albuterol sulfate 90 mcg/actuation 1 inh inhalation QID #8.5 grams 07/30/23 aerosol inhaler omeprazole 20 mg capsule,delayed 20 mg PO BID #30 caps 08/22/23 release ibuprofen 800 mg tablet 800 mg PO Q6H PRN pain #14 tabs 09/13/23 amoxicillin 500 mg-potassium 1 tab PO BID #20 tabs 03/12/24 clavulanate 125 mg tablet (Augmentin) ibuprofen 400 mg tablet 400 mg PO Q8H PRN fever or pain 03/12/24 #20 tabs amoxicillin 875 mg-potassium 1 tab PO BID #14 tabs 05/09/24 clavulanate 125 mg tablet Allergies Allergy/AdvReac Type Severity Reaction Status Date / Time No Known Allergies Allergy Verified 05/09/24 12:25 Review of Systems Review of Systems: Yes all other systems are reviewed and are negative Constitutional: Constitutional: Reports no additional constitutional complaints, Denies body ache(s), Denies chills, Denies fever(s), Denies headache(s) and Denies weakness Eyes: Eyes: Reports no additional eye complaints and Denies change in vision ENT: Reports system reviewed and no additional complaints, except as documented, Denies dizziness, Denies ear discharge, Reports otalgia, Denies headache(s), Reports nasal congestion, Denies nasal discharge, Denies neck pain, Denies tinnitus, Reports sinus pain, Reports sinus pressure and Denies sore throat Cardiovascular: Cardiovascular: Reports no additional cardiovascular complaints, Denies chest pain, Denies leg edema and Denies dyspnea Respiratory: Respiratory: Reports no additional respiratory complaints, Denies cough and Denies dyspnea Gastrointestinal: Gastrointestinal: Reports no additional gastrointestinal complaints, Denies abdominal pain, Denies diarrhea, Denies nausea and Denies vomiting Genitourinary: Genitourinary: Denies urinary incontinence Musculoskeletal: Musculoskeletal: Reports no additional musculoskeletal complaints, Denies back pain, Denies arthralgias, Denies joint swelling, Denies neck pain, Denies numbness and Denies tingling Integumentary/Breasts: Skin/Breast: Reports system reviewed and no additional complaints, except as docu and Denies rash Neurologic: Reports system reviewed and no additional complaints, except as documented, Denies Abnormal speech present, Denies dizziness, Denies headache (s), Denies numbness, Denies tingling and Denies weakness PMFSH Past Medical History Attestation statement: The following information was validated with the patient. 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 Physical Exam Vital Signs: Vital Signs: Last Vital Signs Temp 97.5 F 05/09/24 12:23 Pulse 95 05/09/24 12:23 Resp 18 05/09/24 12:23 BP 190/140 H 05/09/24 12:23 Pulse Ox 96 05/09/24 12:23 O2 Del Method Room Air 05/09/24 12:23 BMI result Body Mass Index 40.6 Const: General: cooperative, healthy appearing, comfortable and no acute distress Orientation/consciousness: patient oriented x3 Limitations: no limitations HEENT: Head: Yes normal to inspection Ears: hearing grossly normal bilaterally, TM normal on the right, EAC's normal, mastoids normal, no periauricular adenopathy and TM abnormal (left) bulging, wth effusion and erythematous General nose exam: Normal external nose present and Abnormal mucous membranes and turbinates present erythematous Face and sinus: Yes normal facial exam and Yes sinus tenderness Mouth: Normal oral and palatal mucosa present Throat: Yes posterior oropharynx normal and Yes tonsils normal Eyes: General: appearance normal, both eyes and all related structures Pupils: Equal, round and reactive pupils present Neck: Neck: Yes normal visual inspection, Yes full ROM, Yes no lymphadenopathy and Yes no meningeal signs Chest: Chest palpation & inspection: normal inspection of the chest Resp: Effort & Inspection: normal respiratory effort Auscultation: clear to auscultation bilaterally Cardio: Rate: regular rate Rhythm: regular rhythm Peripheral pulses: Peripheral pulses 2+ throughout GI: Inspection: Yes normal to inspection Palpation (GI): Soft to palpation and nontender Auscultation: normal bowel sounds Back/Spine/Pelvis: Thoracic/Lumbar Spine: thoracic and lumbar spine normal to inspection Skin: General skin exam: no rashes or lesions noted Neuro: General: patient oriented x3, no meningeal signs, no focal motor deficits and normal sensation to monofilament Cranial nerves: Yes Equal, round and reactive pupils present Cognition (Neuro): normal cognition Speech: No Abnormal speech present Gait exam (Neuro): Normal gait present Motor exam (neuro): 5/5 motor strength present throughout Extrem: General: Yes normal to inspection Medical Decision Making Medical Decision Making MDM Narrative: 19 yo male with past medical history of HTN here with complaints of left ear pain/pressure. Has had cough/congestion/sinus pain and pressure x 1 week. Family all has URI symptoms at home. Has tested 3 times for COVID and negative per patient. No hearing loss, tinnitus, ear drainage. Did not take his blood pressure medications today. No headache, vision changes, vomiting. Exam is c/w with L AOM, sinusitis, Will treat with augmentin oral. Asymptomatic HTN-will go home and take meds Differential Diagnosis Differential Diagnoses: The differential diagnosis associated with the presen tation includes Otitis media, sinusitis Low suspicion for otitis externa malignant otitis externa, mastoiditis Admission/Observation Consideration of admission/observation: Escalation of care including admission/observation considered low concern for malignant otitis externa, mastoiditis requiring advanced imaging , urgent ENT consultation and or transfer/admission Tests considered The following testing was considered but not selected: low concern for malignant otitis externa, mastoiditis requiring advanced imaging Prescription Management I considered prescription management with: Antibiotic Chronic Conditions Patient?s care impacted by: Hypertension Discharge Plan Discharge Clinical Impression: Sinusitis, Otitis media Patient Disposition: Home, Self-Care Instructions: Sinusitis (ED), Ear Infection (ED) Additional Instructions: Continue your nasal spray Take your blood pressure medication when you get home. Untreated high blood pressure can be dangerous. Return for headache, vomiting or vision changes Prescriptions: New amoxicillin-pot clavulanate 875-125 mg tablet 1 tab PO BID Qty: 14 0RF No Action albuterol sulfate 90 mcg/actuation HFA aerosol inhaler 1 inh inhalation QID Qty: 8.5 0RF omeprazole 20 mg capsule,delayed release(DR/EC) 20 mg PO BID Qty: 30 0RF ibuprofen 800 mg tablet 800 mg PO Q6H PRN (Reason: pain) Qty: 14 0RF amoxicillin-pot clavulanate [Augmentin] 500-125 mg tablet 1 tab PO BID Qty: 20 0RF ibuprofen 400 mg tablet 400 mg PO Q8H PRN (Reason: fever or pain) Qty: 20 0RF Referrals: ED Physician,Generic [Emergency Provider] - 1 week Print Language: Salvadorean
[2024-05-09 12:34] VITALS: BP 190/140; PULSE 95; RESP 18; TEMP 36.4; O2SAT 96
== END 2024-05-09 12:41 | disposition home or self-care (01) ==
PROVIDERS: Emergency Provider Emergency Medicine
DX: H66.92 Otitis media, unspecified, left ear (principal); J32.9 Chronic sinusitis, unspecified; I10 Essential (primary) hypertension; H92.02 Otalgia, left ear; R05.9 Cough, unspecified; Z79.899 Other long term (current) drug therapy
CPT/HCPCS: 99282; 99283

== ENCOUNTER 2025-02-04 17:44 | Emergency (ER) | payer OTHER, BC, SELFPAY ==
--- NOTE | ~2025-02-04 | XR_ITS ---
CLINICAL HISTORY: laceration, trauma --- Additional Notes or Special Instructions: 3rd finger 3 view left 3rd digit Comparison: None Findings: No fractures or dislocations. No erosions. No radiopaque foreign body. IMPRESSION: 1. No acute findings This document has been electronically signed by: Sarika Andrews MD on 02/04/2025 18:49:02
[2025-02-04 17:56] VITALS: BP 190/119; PULSE 98; RESP 16; TEMP 36.1; O2SAT 96; BMI 42.3
--- NOTE | 2025-02-04 18:00 | ED_ITS ---
HPI - General Adult General Chief complaint: Wound/Laceration Stated complaint: left 3rd finger laceration Time Seen by Provider: 02/04/25 20:29 Source: patient Mode of arrival: ambulatory Limitations: no limitations History of Present Illness ED Provider: Juanito WHITE HPI narrative: The patient is a 19-year-old male presenting to the ED reporting while at work today he was putting a container of knives upon a shelf when 1 fell out of the container, patient has difficulty attempted to catch the knife and suffered a laceration to the radial aspect of the proximal phalanx of the right 3rd digit. Patient was unable to control bleeding and presents to the ED for evaluation. The patient does not know the date of his last tetanus shot. Patient reports history of hypertension for which he was previously placed on antihypertensives, but admits he has recently been noncompliant with his medications. Patient arrives to the ED hypertensive, reports he is in the process of following up with his PCP to reinitiate medications. The patient denies impaired or painful range of motion. Related Data Previous Rx's ?Medication ?Instructions ?Recorded albuterol sulfate 90 mcg/actuation 1 inh inhalation QI D #8.5 grams 07/30/23 aerosol inhaler omeprazole 20 mg capsule,delayed 20 mg PO BID #30 caps 08/22/23 release ibuprofen 800 mg tablet 800 mg PO Q6H PRN pain #14 t abs 09/13/23 amoxicillin 500 mg-potassium 1 tab PO BID #20 tabs clavulanate 125 mg tablet (Augmentin) ibuprofen 400 mg tablet 400 mg PO Q8H PRN fever or p ain 03/12/24 #20 tabs amoxicillin 875 mg-potassium 1 tab PO BID #14 tabs clavulanate 125 mg tablet Allergies Allergy/AdvReac Type Severity Reaction Status Date / Time No Known Allergies Allergy Verified 02/04/25 17:59 Review of Systems Review of Systems: Yes all other systems are reviewed and are negative PMFSH Past Medical History Medical History HTN (hypertension) Social History Social History Household Members: Family Housing: House Patient Tobacco Use Status: Never used Tobacco Advance Directives: No Advance Directives Information Provided: No Do you have a plan to hurt others: No Plan 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 Vital signs as documented. HEAD: Atraumatic, normocephalic. EYES: EOMs grossly intact, pupils equal, conjunctiva clear, no exudate. ENT: Nares patent, no discharge. Airway patent, no audible stridor, visible mucosa is pink and moist without noted lesions. NECK: trachea is midline, no obvious masses or gross abnormalities. CHEST: Symmetric movement, normal appearance. LUNGS: Non-labored work of breathing. CARDIAC: No evidence of hypoperfusion. ABDOMEN: Nondistended, no obvious injury. : Deferred. EXTREMITIES: There is a linear 1 cm laceration noted to the radial aspect of the proximal phalanx of the 3rd right digit, bleeding controlled with direct pressure but immediately resumes bleeding upon removal of pressure. Distal CSM is intact, full nonpainful range of motion, no evidence of tendon involvement or injury. Moves all extremities spontaneously without reported pain. No other obvious injury or deformity noted. NEURO: Alert and oriented x3, CN II-XII appear grossly intact. Cerebellar Functioning grossly intact. Speech clear and appropriate. SKIN: Warm, dry, color appropriate. No rashes or lesions noted. Course Course Course Narrative: RME, this is a rapid medical exam performed by Edouard Buck please refer to primary provider for complete H&P- 19-year-old male presents for evaluation of a laceration to his left 3rd finger. He reports dropping a knife and trying to catch it. Denies cause a laceration to the left 3rd finger. Plan for x-ray, tetanus booster. Medications Administered Discontinued Medications Generic Name Dose Route Start Last Admin Trade Name Freq PRN Reason Stop Dose Admin Diphtheria/Tetanus/Acell Pertussis 0.5 ml 02/04/25 18:01 02/04/25 20:27 Diphth,Pertus(Acell),Tet Adult 0.5 Ml Syringe IM 02/04/25 18:02 0.5 ml .ONCE ONE Administration Procedures Laceration Laceration 1: Size (cm): 1 Description: linear Depth: simple, single layer Local Anesthetic: lidocaine 1% (Digital Block) Amount of anesthesia used (mL): 5 Skin layer closed with: nylon Size (cm): 4-0 Number of sutures: 1 Technique: simple, interrupted Medical Decision Making Medical Decision Making MDM Narrative: 8:56 PM 02/04/2025 (Sherice WHITE): Patient is a 19-year-old male with history of hypertension presenting to the ED for evaluation of a laceration of the right 3rd digit, exam reveals a well-approximated linear 1 cm laceration of the radial aspect of the proximal phalanx of the right 3rd digit. X-ray shows no acute fracture or foreign body. Unable to control bleeding despite multiple attempts at direct pressure, attempted Dermabond repair but this was unsuccessful secondary to venous bleeding. We will perform suture repair. Radiology Impression Discussion of test interpretation with radiology: I have reviewed the radiologist's reading. Radiologist Impression: 3 view left 3rd digit Comparison: None Findings: No fractures or dislocations. No erosions. No radiopaque foreign body. IMPRESSION: 1. No acute findings This document has been electronically signed by: Sarika Andrews MD on 02/04/2025 18:49:02 Discharge Plan Discharge Clinical Impression: Laceration Patient Disposition: Home, Self-Care Instructions: Finger Laceration (ED) Additional Instructions: Thank you for choosing [facility]'s Emergency Department for your care today. Your laceration today appears noncomplicated. The laceration was repaired with nonabsorbable sutures which will need to be removed in 5-7 days. Please return to the emergency department or follow-up with your primary care provider for removal of sutures. Please apply bacitracin and a clean dry dressing to the laceration twice daily for the first 2-3 days. Then please keep the area clean and dry, but uncovered and exposed to the air to allow the laceration to heal. While it is perfectly acceptable to allow water to run over the sutures while showering, please do not swim, or submerge the laceration in standing water until the sutures are removed. You may take alternating (staggered) doses of ibuprofen 600mg and Tylenol 1000mg every 4 hours as needed for any additional pain. If you do not have a primary care physician, please call the [facility] at [phone] to establish a new primary care physician. While waiting to establish your new primary care physician, you can call our Walk[facility]in [facility] at [phone] for non-emergency needs. Please return to the emergency department if you develop any uncontrollable bleeding, re-opening of your wound, redness advancing >1-2 cm away from your wound, or white milky discharge from your wound. Please also return if you experience any other new or worsening symptoms or concerns. Prescriptions: No Action albuterol sulfate 90 mcg/actuation HFA aerosol inhaler 1 inh inhalation QID Qty: 8.5 0RF omeprazole 20 mg capsule,delayed release(DR/EC) 20 mg PO BID Qty: 30 0RF ibuprofen 800 mg tablet 800 mg PO Q6H PRN (Reason: pain) Qty: 14 0RF amoxicillin-pot clavulanate [Augmentin] 500-125 mg tablet 1 tab PO BID Qty: 20 0RF ibuprofen 400 mg tablet 400 mg PO Q8H PRN (Reason: fever or pain) Qty: 20 0RF amoxicillin-pot clavulanate 875-125 mg tablet 1 tab PO BID Qty: 14 0RF Stand Alone Forms: Work/School Release Print Language: Wolof
[2025-02-04] MEDS: Diphth,Pertus(ACell),Tet Adult 0.5 ML SYRINGE IM (20:27)
[2025-02-04] MEDS: Lidocaine HCl 1 % MPF 5 ML VIAL INFILTRATI (21:00)
[2025-02-04 22:10] VITALS: BP 180/114; PULSE 78; RESP 16; TEMP 36.8; O2SAT 96
== END 2025-02-04 22:15 | disposition home or self-care (01) ==
PROVIDERS: Emergency Provider Emergency Medicine
DX: S61.212A Laceration without foreign body of right middle finger without damage to nail, initial encounter (principal); W26.0XXA Contact with knife, initial encounter; M79.644 Pain in right finger(s); Y93.9 Activity, unspecified; Y92.9 Unspecified place or not applicable; Y99.0 Civilian activity done for income or pay; Z91.148 Patient's other noncompliance with medication regimen for other reason; Z23 Encounter for immunization; Z79.899 Other long term (current) drug therapy
CPT/HCPCS: 12001; 73140; 90471; 90715; 99283; 99284; J2003

== ENCOUNTER → 2025-02-04 18:00 | Outpatient (BNV) | payer OTHER, SELFPAY | PROVIDERS: Visit Provider Radiology Diagnostic Radiology | DX: S61.213A Laceration without foreign body of left middle finger without damage to nail, initial encounter (principal) | CPT/HCPCS: 73140 ==